=== PATIENT | female | born 1955 | race Caucasian/White ===

== ENCOUNTER → 2019-03-19 | Outpatient (CLI) | payer MEDICARE, OTHER ==
[~2019-03-19] MED LIST: ASCO500C14; CALC-196; GLUC1CAP37; MULT-608; OMG1KC; RIZA10TA23; ST JOHN'S WART
--- NOTE | 2019-03-19 15:20 | Diagnostic Imaging Report ---
INDICATION: Right thumb injury. EXAMINATION: Three views of the right thumb were obtained. FINDINGS: No fracture on the volar aspect of the base of the proximal phalanx of the thumb. IMPRESSION: Minimally distracted volar plate fracture of the base of the proximal phalanx of the right thumb. Dictated by: Dictated on workstation # [id number]
== END ==
LOC: RAD FS 15:02
PROVIDERS: ATTEND Family Medicine
DX: S69.91XA Unspecified injury of right wrist, hand and finger(s), initial encounter (principal)
CPT/HCPCS: 73140

== ENCOUNTER → 2019-04-06 | Outpatient (CLI) | payer MEDICARE, OTHER ==
--- NOTE | 2019-04-06 09:22 | Diagnostic Imaging Report ---
Indication: Displaced fracture of the proximal phalanx of the right thumb. Comparison: March 19, 2019 Technique: 3 radiographs centered upon the right thumb dated 04/06/2019. Findings: Slightly distracted fracture involving the base of the first digit proximal phalanx is noted, particularly medially. Distraction appears stable to slightly more prominent than the prior examination. No definite periosteal reaction is seen at this time. No new fracture or dislocation. No destructive osseous process. No suspicious radiopaque foreign body. Impression: Subacute minimally distracted fracture involving the base of the first digit proximal phalanx medially. Distraction appears stable to minimally more prominent than the prior examination. No definite healing identified this time. Recommend continued radiographic followup to ensure healing. No new acute osseous abnormality. Dictated by: Dictated on workstation # [id number]
== END ==
LOC: RAD FS 08:35
PROVIDERS: ATTEND Nurse Practitioner
DX: S62.511A Displaced fracture of proximal phalanx of right thumb, initial encounter for closed fracture (principal)
CPT/HCPCS: 73140